=== PATIENT | female | born 1950 | race Caucasian/White ===

== ENCOUNTER → 2018-02-04 | Outpatient (CLI) | payer OTHER ==
[~2018-02-04] MED LIST: ACCUNEB SO1.25 MG/1 INH; ACIDOPHILUS1 EAC3 PO; ADVAIR 500-501 EACH INH; ALBUTEROL2.5 MG/0.1 INH; ALBUTEROL2.5 MG/0.5 INH; ASTELIN30 ML NS; BETA-VAL 0.1% O45 GM TOP; CALCIUM CITRAT1 EA15 PO; CARAFATE 1 GM TA1 G1 PO; CELEBREX 200 M200 MG PO; COLACE100 MG PO; COMBIVENT INH; COZAAR 25 MG TA25 M2 PO; DULERA 200 MCG/13 GM; GLUCOPHAGE500 MG PO; HYDROCODON-ACE1 EAC7 PO; HYDROCODONE-AP1 EAC6 PO; IRON325 PO; K-DUR 20 MEQ T20 MEQ PO; KRILL OIL 3001 EACH PO; LASIX 20 MG TAB20 MG PO; LOSARTAN-HCTZ1 EAC2 PO; MAGNESIUM400 MG PO; NASONEX17 GM INH; NEURONTIN 300300 M1; NEURONTIN600 MG PO; NORCO 5-325 TA1 EACH PO; PRAMOSONE 1%28.4 G1 TP; PREDNISOLONE 5 M5 M1 PO; PREDNISONE; PREDNISONE 2.52.5 M1 PO; PRILOSEC40 MG PO; SINGULAIR 10 MG10 M1; SINGULAIR 10 MG10 M1 PO; SPIRIVA; THEOPHYLLINE S300 M1 PO; TRAMADOL100 MG PO; VANDAZOLE GEL 070 GM VG; VITAMIN B COMP1 EAC7 PO; ZANAFLEX4 MG PO; ZANTAC 150MG T150 MG PO; ZYRTEC10 M2 PO; [UNRECOGNIZED DRUG - OTHER]; [UNRECOGNIZED DRUG - OTHER] PO; iron PO; oxygen NASAL; prednisone; vitamin b12; vitamin d
== END ==
LOC: M.WC 13:00
DX: E11.622 Type 2 diabetes mellitus with other skin ulcer (principal); L97.811 Non-pressure chronic ulcer of other part of right lower leg limited to breakdown of skin; I87.2 Venous insufficiency (chronic) (peripheral); L89.893 Pressure ulcer of other site, stage 3; E11.40 Type 2 diabetes mellitus with diabetic neuropathy, unspecified; G47.30 Sleep apnea, unspecified; I10 Essential (primary) hypertension; K21.9 Gastro-esophageal reflux disease without esophagitis; E11.51 Type 2 diabetes mellitus with diabetic peripheral angiopathy without gangrene; M19.90 Unspecified osteoarthritis, unspecified site; Z86.718 Personal history of other venous thrombosis and embolism; Z87.891 Personal history of nicotine dependence; Z90.710 Acquired absence of both cervix and uterus